=== PATIENT | male | born 1960 | race Caucasian/White ===

== ENCOUNTER → 2016-05-20 | Day surgery (SDC) | payer MEDICARE, OTHER ==
[~2016-05-20] MED LIST: BACITRACIN IM FOR SOLN 50,000 UNIT VIAL ONE; BUPIVACAINE HCL PF 0.75% 30 ML VIAL ONE; CARB200T16 PO; CHOL50006 PO; GABA300C3 PO; GENTAMICIN SULFATE 80 MG/2 ML VIAL ONE; GLUCTAB PO; LACTATED RINGER'S 1000 ML INJ 1,000 ML ONE; LEVO.025 PO; LIDOCAINE 1.5%/EPINEPHrine 1:200,000 PF SOLN 30 ML AMP ONE; LORTA5 PO; MICA40TA2 PO; MIDAZOLAM HCL 5 MG/ML VIAL (1 ML) ONE; OMEP20CA5 PO; ONDANSETRON HCL 4 MG/2 ML VIAL IV PUSH ONE; PRAV40TA2 PO; PROPOFOL 200 MG/20 ML AMP IV ONE; SODIUM CHLORIDE 0.9% INJ 10 ML ONE; TRAZ50TA78 PO; VIAG100T PO; VICT18IN SQ; ceFAZolin INJ 1,000 MG VIAL ONE
--- NOTE | 2016-05-20 14:37 | TN ---
cc: PRADIP VIDAL DATE OF SURGERY: May 20, 2016 PREOPERATIVE DIAGNOSIS Right shoulder rotator cuff tendon tear, impingement syndrome, osteoarthritis AC joint, type 2 acromion. POSTOPERATIVE DIAGNOSIS Right shoulder rotator cuff tendon tear, impingement syndrome, osteoarthritis AC joint, type 2 acromion. PROCEDURE Right shoulder rotator cuff tendon repair, NEER decompressive acromioplasty, resection acromioclavicular joint, excision coracoacromial ligament. SURGEON Sylvia Vidal MD VENEER DRIER TAILER BROOKS [place] SPECIMEN None. ESTIMATED BLOOD LOSS Minimum. COMPLICATIONS None. ANESTHESIA General, interscalene block. DRAINS None. CONDITION Stable. PLAN OF ACTIVITY Per orders. PROCEDURE My family readiness support assistant BROOKS [place] was present for the entire surgical case. She was medically necessary for the entire case because of the complexity of the case and to facilitate the performance of the procedure. The VISITOR INFORMATION ASSISTANT at the back table was not of skill set to manipulate the instruments, e.g., the multiple different types of soft tissue retractors and shoulder implants. Small anterior exposure of the shoulder is made. Dissection was made through skin and subcutaneous tissue. The tendinous portion of the deltoid was removed off the anterior aspect of the acromion and acromioclavicular joint. NEER decompressive acromioplasty was performed using oscillating saw and a bur. Excision of the coracoacromial ligament, resection of the acromioclavicular joint and distal clavicle was also performed. With this the patient was found to have satisfactory decompression of subacromial space. Patient was found to have longitudinal tear involving the supraspinatus tendon. Multiple #2 Tycron sutures [id number] repair was used to repair the supraspinatus tendon. The tendinous portion of the deltoid was repaired back to the acromion with multiple drill holes using #2 Tycron suture. Subcutaneous tissue was closed in layers with 2-0 Vicryl. Skin was approximated with running subcuticular 2-0 Nylon. Sterile dressing were applied. The patient tolerated the procedure well and arrived in the recovery room in stable and satisfactory condition. Pradip Vidal MD AG/TLL /1:54 PM /2:20 PM
== END | disposition home or self-care (01) ==
LOC: ESDC 10:42
PROVIDERS: ATTEND Orthopaedic Surgery Orthopaedic Surgery of the Spine
DX: M75.111 Incomplete rotator cuff tear or rupture of right shoulder, not specified as traumatic (principal); M75.41 Impingement syndrome of right shoulder; M19.011 Primary osteoarthritis, right shoulder
CPT/HCPCS: 00450; 01630; 01991; 23120; 23420; 64417; J0690; J1580; J2250; J2405; J7120